=== PATIENT | female | born 1955 | race Caucasian/White ===

== ENCOUNTER 2017-09-15 12:44 | Inpatient (IN) | payer BC, MEDICAID, OTHER ==
[2017-09-15] VITALS (8 sets, daily range): BP systolic 108–167; BP diastolic 59–84
[~2017-09-15] VITALS: Ht 165.1 cm; Wt 102.1 kg
[~2017-09-15 12:44] MED LIST: BUPR-94 PO; LOSA25TA96 PO; TRAM1TAB36 PO
[2017-09-15 13:49] LABS: BASOPHILS % (AUTO) 0.3 % (0-1); EOSINOPHILS # (AUTO) 0.3 X10'3 (0-0.9); EOSINOPHILS % (AUTO) 3.4 % (0-6); LYMPHOCYTES # (AUTO) 1.6 X10'3 (1.1-4.8); LYMPHOCYTES % (AUTO) 15.7 % (21-51); MEAN CORPUSCULAR HEMOGLOBIN 19.3 PG (27.0-31.0); MEAN CORPUSCULAR VOLUME 62.4 FL (78-98); MEAN PLATELET VOLUME 6.9 FL (7.4-10.4); MONOCYTES # (AUTO) 0.6 X10'3 (0-0.9); MONOCYTES % (AUTO) 5.8 % (2-12); NEUTROPHILS # (AUTO) 7.7 X10'3 (1.8-7.7); NEUTROPHILS % (AUTO) 74.8 % (42-75); PLATELET COUNT 414 X10'3 (140-440); RED BLOOD COUNT 1.97 X10'6 (4.20-5.60); RED CELL DISTRIBUTION WIDTH 23.6 % (11.5-14.5); WHITE BLOOD COUNT 10.3 X10'3 (4.5-11.0)
[2017-09-15 13:59] LABS: HEMATOCRIT 12.3 % (35.0-45.0); HEMOGLOBIN 3.8 g/dl (12.0-16.0); PARTIAL THROMBOPLASTIN TIME 22 SECONDS (22-32); PROTHROMBIN TIME 10.3 SECONDS (9.0-12.0)
[2017-09-15 14:03] LABS: ALANINE AMINOTRANSFERASE 107 U/L (12-78); ALBUMIN 2.9 G/DL (3.4-5.0); ALKALINE PHOSPHATASE 140 IU/L (46-116); ANION GAP 6 (8-16); ASPARTATE AMINO TRANSFERASE 109 U/L (10-37); BILIRUBIN,TOTAL 0.2 MG/DL (0.1-1.0); BLOOD UREA NITROGEN 31 MG/DL (7-18); BUN/CREATININE RATIO 17.2 (6.6-38.0); CALCIUM 9.5 MG/DL (8.5-10.1); CHLORIDE 99 MMOL/L (99-107); GLUCOSE 114 MG/DL (70-104); SODIUM 143 MMOL/L (135-145); TOTAL CARBON DIOXIDE 38.4 MMOL/L (24-32); TOTAL PROTEIN 5.8 G/DL (6.4-8.2); eGFR 29 ML/MIN
[2017-09-15 14:06] LABS: POTASSIUM 2.4 MMOL/L (3.5-5.1)
[2017-09-15] MEDS ORDERED: potassium Cl 20 mEq SR tablet PO ONE (14:15)
[2017-09-15] MEDS ORDERED: magnesium 2GM in 50ml NS 50 ML IV ONE (14:15)
[2017-09-15] MEDS ORDERED: potassium 10mEq/100ml NS w/LIDOcaine (10mg/bag) IV ONE (14:15)
[2017-09-15 14:45] LABS: PLATELET ESTIMATE NORMAL
[2017-09-15] MEDS ORDERED: pantoprazole 40 MG vial IV ONE (14:45)
[2017-09-15 14:48] LABS: ANISOCYTOSIS 3+; HYPOCHROMASIA 1+; POIKILOCYTOSIS 1+; POLYCHROMASIA 1+
[2017-09-15 14:49] LABS: ELLIPTOCYTES 1+; MICROCYTOSIS 2+; TEAR DROP CELLS FEW
[2017-09-15] MEDS ORDERED: potassium Cl 20 mEq SR tablet PO PRN (16:00)
[2017-09-15] MEDS ORDERED: magnesium hydroxide 30ml (MOM) UD suspension PO PRN (16:00)
[2017-09-15] MEDS ORDERED: HYDROcodone/acetaminophen 10/325mg tab PO PRN (16:00)
[2017-09-15] MEDS ORDERED: ondansetron/PF 4mg/2ml inj IV PRN (16:00)
[2017-09-15] MEDS ORDERED: HYDROcodone/acetaminophen 5mg/325mg tablet PO PRN (16:00)
[2017-09-15] MEDS ORDERED: mag hydrox/Alum hydrox/simeth 30ml oral suspension PO PRN (16:00)
[2017-09-15] MEDS ORDERED: potassium Cl 40MEQ/NS 500ml 500 ML IV PRN (16:00)
[2017-09-15] MEDS ORDERED: acetaminophen 325mg tablet PO PRN ×2 (16:00)
[2017-09-15] MEDS ORDERED: magnesium 4gm in 100ml NS 100 ML IV PRN (16:00)
[2017-09-15] MEDS ORDERED: magnesium 2GM in 50ml NS 50 ML IV PRN (16:00)
[2017-09-15] MEDS ORDERED: magnesium Cl slow-release 64mg tablet PO PRN (16:00)
[2017-09-15] MEDS ORDERED: pantoprazole 40MG/NS 100ML BAG 100 ML IV SCH (16:20)
[2017-09-15] MEDS: pantoprazole 40MG/NS 100ML BAG 100 ML IV SCH ×2 (16:22→22:37)
[2017-09-15] MEDS ORDERED: LAMO100T89 PO (16:51)
[2017-09-15] MEDS ORDERED: ARIP5TAB4 PO (16:51)
[2017-09-15] MEDS ORDERED: MONT10TA24 PO (16:51)
[2017-09-15] MEDS ORDERED: ATEN50TA8 PO (16:51)
[2017-09-15] MEDS ORDERED: ADV50500 PO (16:54)
[2017-09-15] MEDS ORDERED: CHOL50004 PO (16:54)
[2017-09-15] MEDS ORDERED: CHLO25TA10 PO (16:54)
[2017-09-15] MEDS ORDERED: LOSA100T28 PO (16:54)
[2017-09-15 17:14] LABS: OCCULT BLOOD STOOL POSITIVE (Neg)
[2017-09-15] MEDS ORDERED: ARIP10TA17 PO (17:37)
[2017-09-15] MEDS ORDERED: ATEN25TA PO (17:38)
[2017-09-15 18:43] LABS: CLARITY,URINE CLEAR (Clear); COLOR,URINE YELLOW (Yellow); GLUCOSE, URINE NEGATIVE (Neg); KETONES,URINE NEGATIVE (Neg); LEUKOCYTE ESTERASE ,URINE NEGATIVE (Neg); NITRITES, URINE NEGATIVE (Neg); OCCULT BLOOD,URINE NEGATIVE (Neg); PROTEIN,URINE NEGATIVE (Neg); UROBILINOGEN,URINE 0.2 E.U/dL (0.2-1.0)
[2017-09-15 18:50] LABS: UA COLLECTION TYPE URINAL
[2017-09-16] VITALS (24 sets, daily range): BP systolic 112–234; BP diastolic 66–101
[2017-09-16] MEDS: pantoprazole 40MG/NS 100ML BAG 100 ML IV SCH ×6 (01:00→21:37)
[2017-09-16] MEDS: normal saline 1000ml 1,000 ML IV SCH ×4 (01:59→23:22)
[2017-09-16 06:04] LABS: HEMATOCRIT 22.7 % (35.0-45.0); HEMOGLOBIN 7.5 g/dl (12.0-16.0); MEAN CORPUSCULAR HEMOGLOBIN 25.2 PG (27.0-31.0); MEAN CORPUSCULAR HGB CONC 33.1 % (33.0-36.5); MEAN CORPUSCULAR VOLUME 76.1 FL (78-98); MEAN PLATELET VOLUME 7.2 FL (7.4-10.4); PLATELET COUNT 364 X10'3 (140-440); RED BLOOD COUNT 2.98 X10'6 (4.20-5.60); RED CELL DISTRIBUTION WIDTH 27.1 % (11.5-14.5); WHITE BLOOD COUNT 13.2 X10'3 (4.5-11.0)
[2017-09-16 06:13] LABS: ALBUMIN 2.7 G/DL (3.4-5.0); ANION GAP 6 (8-16); BLOOD UREA NITROGEN 34 MG/DL (7-18); BUN/CREATININE RATIO 21.3 (6.6-38.0); CALCIUM 9.2 MG/DL (8.5-10.1); CHLORIDE 103 MMOL/L (99-107); GLUCOSE 113 MG/DL (70-104); MAGNESIUM 1.9 MG/DL (1.5-2.4); SODIUM 144 MMOL/L (135-145); TOTAL CARBON DIOXIDE 34.6 MMOL/L (24-32); eGFR 33 ML/MIN
[2017-09-16] MEDS: K and/or MAG REPLACEMENT MC SCH (08:00)
[2017-09-16] MEDS: potassium Cl 40MEQ/NS 500ml 500 ML IV PRN ×2 (10:51→18:05)
[2017-09-16] MEDS ORDERED: normal saline 1000ml 1,000 ML IV SCH (15:42)
[2017-09-16] MEDS ORDERED: simethicone 40mg/0.6ml oral drops 30ml MC ONE (15:45)
[2017-09-16] MEDS ORDERED: fentaNYL/PF 50MCG/1 ML 2ML syringe IV PRN (15:45)
[2017-09-16] MEDS ORDERED: MIDAZolam 5mg/5ml vial IV PRN (15:45)
[2017-09-16] MEDS ORDERED: LIDOcaine Viscous 15ml cup PO ONE (15:45)
[2017-09-16] MEDS ORDERED: fentaNYL/PF 50MCG/1 ML 2ML syringe ONE (16:14)
[2017-09-16] MEDS ORDERED: LIDOcaine Viscous 15ml cup ONE (16:15)
[2017-09-16] MEDS ORDERED: MIDAZolam 1mg/ml 10ml vial ONE (16:15)
[2017-09-16] MEDS ORDERED: furosemide 40mg/4ml inj IV ONE (16:40)
[2017-09-17] VITALS (15 sets, daily range): BP systolic 137–162; BP diastolic 50–90
[2017-09-17] MEDS: potassium Cl 20 mEq SR tablet PO PRN ×2 (00:48→08:49)
[2017-09-17] MEDS: pantoprazole 40MG/NS 100ML BAG 100 ML IV SCH ×5 (01:00→20:53)
[2017-09-17 05:11] LABS: MEAN CORPUSCULAR HEMOGLOBIN 24.8 PG (27.0-31.0); MEAN CORPUSCULAR HGB CONC 32.7 % (33.0-36.5); MEAN CORPUSCULAR VOLUME 75.9 FL (78-98); MEAN PLATELET VOLUME 7.2 FL (7.4-10.4); PLATELET COUNT 344 X10'3 (140-440); RED BLOOD COUNT 2.66 X10'6 (4.20-5.60); RED CELL DISTRIBUTION WIDTH 27.9 % (11.5-14.5); WHITE BLOOD COUNT 14.7 X10'3 (4.5-11.0)
[2017-09-17 05:30] LABS: HEMATOCRIT 20.2 % (35.0-45.0); HEMOGLOBIN 6.6 g/dl (12.0-16.0)
[2017-09-17 05:49] LABS: ALBUMIN 2.4 G/DL (3.4-5.0); ANION GAP 7 (8-16); BLOOD UREA NITROGEN 24 MG/DL (7-18); CALCIUM 8.4 MG/DL (8.5-10.1); CHLORIDE 106 MMOL/L (99-107); GLUCOSE 106 MG/DL (70-104); MAGNESIUM 1.5 MG/DL (1.5-2.4); SODIUM 145 MMOL/L (135-145); TOTAL CARBON DIOXIDE 31.9 MMOL/L (24-32); eGFR 46 ML/MIN
[2017-09-17 05:53] LABS: POTASSIUM 2.8 MMOL/L (3.5-5.1)
[2017-09-17] MEDS: normal saline 1000ml 1,000 ML IV SCH ×2 (07:59→08:51)
[2017-09-17] MEDS: K and/or MAG REPLACEMENT MC SCH (08:00)
[2017-09-17] MEDS ORDERED: furosemide 20 MG/2 ML vial IV ONE ×2 (08:35→15:00)
[2017-09-17 13:11] LABS: HBSAG SCREEN Negative (Negative); HEP A AB, IGM Negative (Negative); HEP B CORE AB, IGM Negative (Negative); HEPATITIS C ANTIBODY <0.1 s/co ratio (0.0-0.9)
[2017-09-17] MEDS ORDERED: potassium Cl oral solution 20 MEQ/15 ML PO PRN ×2 (13:34→13:35)
[2017-09-17 18:13] LABS: HEMATOCRIT 25.6 % (35.0-45.0); HEMOGLOBIN 8.4 g/dl (12.0-16.0); MEAN CORPUSCULAR HEMOGLOBIN 26.1 PG (27.0-31.0); MEAN CORPUSCULAR HGB CONC 32.9 % (33.0-36.5); MEAN CORPUSCULAR VOLUME 79.3 FL (78-98); MEAN PLATELET VOLUME 6.9 FL (7.4-10.4); PLATELET COUNT 347 X10'3 (140-440); RED BLOOD COUNT 3.23 X10'6 (4.20-5.60); RED CELL DISTRIBUTION WIDTH 23.9 % (11.5-14.5); WHITE BLOOD COUNT 13.3 X10'3 (4.5-11.0)
[2017-09-17] MEDS: LIDOcaine 1% 30ml vial 5 ML in potassium Cl 40MEQ/NS 500ml 500 ML IV PRN (20:34)
[2017-09-17 22:15] LABS: HEMATOCRIT 25.1 % (35.0-45.0); HEMOGLOBIN 8.3 g/dl (12.0-16.0); MEAN CORPUSCULAR HGB CONC 33.1 % (33.0-36.5); MEAN CORPUSCULAR VOLUME 78.6 FL (78-98); MEAN PLATELET VOLUME 7.1 FL (7.4-10.4); PLATELET COUNT 326 X10'3 (140-440); RED BLOOD COUNT 3.19 X10'6 (4.20-5.60); RED CELL DISTRIBUTION WIDTH 23.6 % (11.5-14.5); WHITE BLOOD COUNT 12.6 X10'3 (4.5-11.0)
[2017-09-17] MEDS ORDERED: LORazepam 2 mg/ml vial IV PRN ×2 (23:35)
[2017-09-18] VITALS (14 sets, daily range): BP systolic 143–181; BP diastolic 76–102
[2017-09-18] MEDS: morphine 2 MG/ML inj. syringe IV PRN ×3 (00:42→19:56)
[2017-09-18] MEDS: LIDOcaine 1% 30ml vial 5 ML in potassium Cl 40MEQ/NS 500ml 500 ML IV PRN (00:53)
[2017-09-18] MEDS: pantoprazole 40MG/NS 100ML BAG 100 ML IV SCH ×5 (02:06→22:41)
[2017-09-18 02:53] LABS: HEMATOCRIT 23.8 % (35.0-45.0); MEAN CORPUSCULAR HEMOGLOBIN 26.4 PG (27.0-31.0); MEAN CORPUSCULAR HGB CONC 33.7 % (33.0-36.5); MEAN CORPUSCULAR VOLUME 78.4 FL (78-98); MEAN PLATELET VOLUME 6.8 FL (7.4-10.4); PLATELET COUNT 331 X10'3 (140-440); RED BLOOD COUNT 3.04 X10'6 (4.20-5.60); RED CELL DISTRIBUTION WIDTH 24.3 % (11.5-14.5)
[2017-09-18 03:01] LABS: ALBUMIN 2.2 G/DL (3.4-5.0); ANION GAP 5 (8-16); BLOOD UREA NITROGEN 19 MG/DL (7-18); BUN/CREATININE RATIO 17.3 (6.6-38.0); CALCIUM 7.9 MG/DL (8.5-10.1); CHLORIDE 111 MMOL/L (99-107); GLUCOSE 102 MG/DL (70-104); MAGNESIUM 1.2 MG/DL (1.5-2.4); POTASSIUM 3.6 MMOL/L (3.5-5.1); SODIUM 146 MMOL/L (135-145); eGFR 50 ML/MIN
[2017-09-18 07:13] LABS: HEMATOCRIT 24.2 % (35.0-45.0); HEMOGLOBIN 8.2 g/dl (12.0-16.0); MEAN CORPUSCULAR HEMOGLOBIN 26.3 PG (27.0-31.0); MEAN CORPUSCULAR HGB CONC 33.9 % (33.0-36.5); MEAN CORPUSCULAR VOLUME 77.5 FL (78-98); MEAN PLATELET VOLUME 6.4 FL (7.4-10.4); PLATELET COUNT 354 X10'3 (140-440); RED BLOOD COUNT 3.12 X10'6 (4.20-5.60); RED CELL DISTRIBUTION WIDTH 23.9 % (11.5-14.5); WHITE BLOOD COUNT 10.9 X10'3 (4.5-11.0)
[2017-09-18] MEDS: K and/or MAG REPLACEMENT MC SCH (07:38)
[2017-09-18] MEDS ORDERED: simethicone 40mg/0.6ml oral drops 30ml MC ONE (09:15)
[2017-09-18] MEDS ORDERED: normal saline 1000ml 1,000 ML IV SCH (09:15)
[2017-09-18] MEDS ORDERED: MIDAZolam 5mg/5ml vial IV PRN (09:15)
[2017-09-18] MEDS ORDERED: fentaNYL/PF 50MCG/1 ML 2ML syringe IV PRN (09:15)
[2017-09-18] MEDS ORDERED: LIDOcaine Viscous 15ml cup PO ONE (09:15)
[2017-09-18] MEDS ORDERED: LIDOcaine Viscous 15ml cup ONE (10:04)
[2017-09-18] MEDS ORDERED: MIDAZolam 1mg/ml 10ml vial ONE (10:04)
[2017-09-18] MEDS ORDERED: fentaNYL/PF 50MCG/1 ML 2ML syringe ONE (10:04)
[2017-09-18] MEDS: normal saline 1000ml 1,000 ML IV SCH (10:25)
[2017-09-18] MEDS ORDERED: cloNIDine 0.1 mg tablet PO PRN (15:50)
[2017-09-18] MEDS ORDERED: potassium Cl oral solution 20 MEQ/15 ML PO PRN (16:50)
[2017-09-18] MEDS ORDERED: potassium Cl 40MEQ/NS 500ml 500 ML IV PRN ×2 (16:50)
[2017-09-18] MEDS ORDERED: magnesium 4gm in 100ml NS 100 ML IV PRN (16:50)
[2017-09-18] MEDS ORDERED: magnesium 2GM in 50ml NS 50 ML IV PRN (16:50)
[2017-09-18] MEDS ORDERED: magnesium Cl slow-release 64mg tablet PO PRN (16:50)
[2017-09-18 17:55] LABS: HEMATOCRIT 24.7 % (35.0-45.0); HEMOGLOBIN 8.2 g/dl (12.0-16.0); MEAN CORPUSCULAR HEMOGLOBIN 26.1 PG (27.0-31.0); MEAN CORPUSCULAR VOLUME 79.1 FL (78-98); PLATELET COUNT 371 X10'3 (140-440); RED BLOOD COUNT 3.12 X10'6 (4.20-5.60); WHITE BLOOD COUNT 10.1 X10'3 (4.5-11.0)
[2017-09-18] MEDS: carVEDilol 3.125mg tablet PO SCH (19:54)
[2017-09-19] VITALS (50 sets, daily range): BP systolic 114–205; BP diastolic 57–112
[2017-09-19] MEDS: morphine 2 MG/ML inj. syringe IV PRN ×3 (00:23→20:12)
[2017-09-19] MEDS: pantoprazole 40MG/NS 100ML BAG 100 ML IV SCH ×5 (01:00→21:53)
[2017-09-19 04:40] LABS: MEAN CORPUSCULAR HGB CONC 32.8 % (33.0-36.5); MEAN CORPUSCULAR VOLUME 79.2 FL (78-98); MEAN PLATELET VOLUME 6.9 FL (7.4-10.4); PLATELET COUNT 379 X10'3 (140-440); RED BLOOD COUNT 2.65 X10'6 (4.20-5.60); RED CELL DISTRIBUTION WIDTH 24.8 % (11.5-14.5); WHITE BLOOD COUNT 11.8 X10'3 (4.5-11.0)
[2017-09-19 04:43] LABS: HEMOGLOBIN 6.9 g/dl (12.0-16.0)
[2017-09-19 05:22] LABS: ALBUMIN 2.2 G/DL (3.4-5.0); ANION GAP 7 (8-16); BLOOD UREA NITROGEN 14 MG/DL (7-18); CALCIUM 7.5 MG/DL (8.5-10.1); CHLORIDE 109 MMOL/L (99-107); GLUCOSE 130 MG/DL (70-104); MAGNESIUM 2.2 MG/DL (1.5-2.4); POTASSIUM 3.4 MMOL/L (3.5-5.1); SODIUM 143 MMOL/L (135-145); TOTAL CARBON DIOXIDE 27.1 MMOL/L (24-32); eGFR 56 ML/MIN
[2017-09-19] MEDS: K and/or MAG REPLACEMENT MC SCH (06:46)
[2017-09-19] MEDS: carVEDilol 3.125mg tablet PO SCH ×2 (08:00→22:46)
[2017-09-19] MEDS ORDERED: MIDAZolam 1mg/ml 10ml vial ONE (08:38)
[2017-09-19] MEDS ORDERED: LIDOcaine Viscous 15ml cup ONE (08:38)
[2017-09-19] MEDS ORDERED: fentaNYL/PF 50MCG/1 ML 2ML syringe ONE ×4 (08:38→15:44)
[2017-09-19] MEDS ORDERED: normal saline 1000ml 1,000 ML IV SCH (14:07)
[2017-09-19] MEDS ORDERED: LIDOcaine 1%/PF (10mg/ml) 5ml vial SQ ONE (14:10)
[2017-09-19] MEDS ORDERED: fentaNYL/PF 50MCG/1 ML 2ML syringe IV PRN (14:10)
[2017-09-19] MEDS ORDERED: midazolam 2 mg/2 ml injection IV PRN (14:10)
[2017-09-19] MEDS ORDERED: iohexol 300mg/ml 100ml inj. ONE (14:24)
[2017-09-19] MEDS ORDERED: midazolam 2 mg/2 ml injection ONE ×2 (14:56→15:13)
[2017-09-19 18:48] LABS: MEAN CORPUSCULAR HEMOGLOBIN 27.7 PG (27.0-31.0); MEAN CORPUSCULAR HGB CONC 33.2 % (33.0-36.5); MEAN CORPUSCULAR VOLUME 83.4 FL (78-98); MEAN PLATELET VOLUME 6.7 FL (7.4-10.4); PLATELET COUNT 338 X10'3 (140-440); RED BLOOD COUNT 2.22 X10'6 (4.20-5.60); RED CELL DISTRIBUTION WIDTH 21.3 % (11.5-14.5); WHITE BLOOD COUNT 11.1 X10'3 (4.5-11.0)
[2017-09-19 18:56] LABS: HEMATOCRIT 18.5 % (35.0-45.0); HEMOGLOBIN 6.1 g/dl (12.0-16.0)
[2017-09-19] MEDS: normal saline 1000ml 1,000 ML IV SCH (23:33)
[2017-09-20] VITALS (34 sets, daily range): BP systolic 79–220; BP diastolic 50–125
[2017-09-20] MEDS: morphine 2 MG/ML inj. syringe IV PRN ×4 (00:15→11:22)
[2017-09-20] MEDS: pantoprazole 40MG/NS 100ML BAG 100 ML IV SCH ×5 (01:12→18:39)
[2017-09-20 02:09] LABS: HEMOGLOBIN 7.1 g/dl (12.0-16.0); MEAN CORPUSCULAR HEMOGLOBIN 27.8 PG (27.0-31.0); MEAN CORPUSCULAR HGB CONC 32.8 % (33.0-36.5); MEAN CORPUSCULAR VOLUME 84.7 FL (78-98); MEAN PLATELET VOLUME 7.1 FL (7.4-10.4); PLATELET COUNT 262 X10'3 (140-440); RED BLOOD COUNT 2.56 X10'6 (4.20-5.60); RED CELL DISTRIBUTION WIDTH 16.7 % (11.5-14.5)
[2017-09-20 02:13] LABS: HEMATOCRIT 21.7 % (35.0-45.0)
[2017-09-20 06:16] LABS: MEAN CORPUSCULAR HEMOGLOBIN 28.5 PG (27.0-31.0); MEAN CORPUSCULAR HGB CONC 34.4 % (33.0-36.5); MEAN CORPUSCULAR VOLUME 82.8 FL (78-98); MEAN PLATELET VOLUME 6.9 FL (7.4-10.4); PLATELET COUNT 255 X10'3 (140-440); RED BLOOD COUNT 2.42 X10'6 (4.20-5.60); RED CELL DISTRIBUTION WIDTH 17.6 % (11.5-14.5); WHITE BLOOD COUNT 10.7 X10'3 (4.5-11.0)
[2017-09-20 06:32] LABS: ALBUMIN 1.6 G/DL (3.4-5.0); ANION GAP 5 (8-16); BLOOD UREA NITROGEN 22 MG/DL (7-18); BUN/CREATININE RATIO 24.4 (6.6-38.0); CHLORIDE 116 MMOL/L (99-107); GLUCOSE 124 MG/DL (70-104); MAGNESIUM 1.5 MG/DL (1.5-2.4); POTASSIUM 3.5 MMOL/L (3.5-5.1); SODIUM 146 MMOL/L (135-145); TOTAL CARBON DIOXIDE 25.1 MMOL/L (24-32); eGFR 64 ML/MIN
[2017-09-20 06:34] LABS: HEMOGLOBIN 6.9 g/dl (12.0-16.0)
[2017-09-20] MEDS: K and/or MAG REPLACEMENT MC SCH (08:00)
[2017-09-20] MEDS: carVEDilol 3.125mg tablet PO SCH ×2 (08:15→20:00)
[2017-09-20 09:28] LABS: ALANINE AMINOTRANSFERASE 17 U/L (12-78); ALBUMIN/GLOBULIN RATIO 0.8 (1.1-1.5); ALKALINE PHOSPHATASE 53 IU/L (46-116); ASPARTATE AMINO TRANSFERASE 12 U/L (10-37); BILIRUBIN,TOTAL 0.4 MG/DL (0.1-1.0); TOTAL PROTEIN 3.7 G/DL (6.4-8.2)
[2017-09-20 10:55] LABS: HEMATOCRIT 24.7 % (35.0-45.0); HEMOGLOBIN 8.6 g/dl (12.0-16.0); MEAN CORPUSCULAR HEMOGLOBIN 30.1 PG (27.0-31.0); MEAN CORPUSCULAR HGB CONC 34.9 % (33.0-36.5); MEAN CORPUSCULAR VOLUME 86.3 FL (78-98); MEAN PLATELET VOLUME 7.1 FL (7.4-10.4); PLATELET COUNT 232 X10'3 (140-440); RED BLOOD COUNT 2.86 X10'6 (4.20-5.60); RED CELL DISTRIBUTION WIDTH 17.1 % (11.5-14.5); WHITE BLOOD COUNT 11.1 X10'3 (4.5-11.0)
[2017-09-20 11:06] LABS: INR 1.1 INR; PARTIAL THROMBOPLASTIN TIME 25 SECONDS (22-32); PROTHROMBIN TIME 11.3 SECONDS (9.0-12.0)
[2017-09-20] MEDS ORDERED: sevoflurane 250ml liquid IH ONE (12:00)
[2017-09-20 12:51] LABS: ISTAT CREATININE 0.9 mg/dL (0.6-1.1); ISTAT IONIZED CALCIUM 1.11 mmol/L (1.03-1.32); ISTAT K 3.6 mmol/L (3.5-5.1); POC BUN/CREATININE RATIO 18.9 (6.6-38.0)
[2017-09-20 13:13] LABS: ISTAT HGB 5.1 g/dl (12.0-16.0)
[2017-09-20 14:25] LABS: ABG BASE EXCESS -9.2 mmol/L (-2.0-3.0); ABG HCO3 18.1 mmol/L (22.0-26.0); ABG OXYGEN SATURATION 96.7 % (95-98); ABG PCO2 (T) 44.7 mmHg (32.0-45.0); ABG PH (T) 7.226 (7.350-7.450); ABG PO2 (T) 95.3 mmHg (83-108); ALLEN'S TEST Positive; FCOHb 0.6 % (0.5-1.5); FO2Hb 96.1 % (94-100); MINUTE VOLUME 7 L/min; PATIENT TEMPERATURE 37.1; PEEP 5 cm H2O; RESPIRATORY RATE 12 b/min; RESPIRATORY RATE (OBSERVED) 12 b/min; TIDAL VOLUME 550 mL
[2017-09-20] MEDS ORDERED: furosemide 40mg/4ml inj IV ONE (14:40)
[2017-09-20 14:48] LABS: BASOPHILS % (AUTO) 0.1 % (0-1); EOSINOPHILS % (AUTO) 6.3 % (0-6); HEMATOCRIT 37.2 % (35.0-45.0); HEMOGLOBIN 12.8 g/dl (12.0-16.0); LYMPHOCYTES # (AUTO) 2.5 X10'3 (1.1-4.8); LYMPHOCYTES % (AUTO) 15.1 % (21-51); MEAN CORPUSCULAR HEMOGLOBIN 30.7 PG (27.0-31.0); MEAN CORPUSCULAR HGB CONC 34.5 % (33.0-36.5); MEAN CORPUSCULAR VOLUME 89.1 FL (78-98); MEAN PLATELET VOLUME 6.9 FL (7.4-10.4); MONOCYTES # (AUTO) 0.4 X10'3 (0-0.9); MONOCYTES % (AUTO) 2.5 % (2-12); NEUTROPHILS # (AUTO) 12.4 X10'3 (1.8-7.7); PLATELET COUNT 224 X10'3 (140-440); RED BLOOD COUNT 4.18 X10'6 (4.20-5.60); RED CELL DISTRIBUTION WIDTH 15.7 % (11.5-14.5); WHITE BLOOD COUNT 16.3 X10'3 (4.5-11.0)
[2017-09-20 15:04] LABS: ALANINE AMINOTRANSFERASE 43 U/L (12-78); ALBUMIN 1.7 G/DL (3.4-5.0); ALBUMIN/GLOBULIN RATIO 0.7 (1.1-1.5); ALKALINE PHOSPHATASE 62 IU/L (46-116); ANION GAP 8 (8-16); ASPARTATE AMINO TRANSFERASE 50 U/L (10-37); BILIRUBIN,TOTAL 0.6 MG/DL (0.1-1.0); BLOOD UREA NITROGEN 22 MG/DL (7-18); BUN/CREATININE RATIO 18.3 (6.6-38.0); CALCIUM 6.7 MG/DL (8.5-10.1); CHLORIDE 117 MMOL/L (99-107); GLUCOSE 165 MG/DL (70-104); MAGNESIUM 1.4 MG/DL (1.5-2.4); PHOSPHORUS 3.4 MG/DL (2.3-4.5); POTASSIUM 3.8 MMOL/L (3.5-5.1); SODIUM 147 MMOL/L (135-145); TOTAL CARBON DIOXIDE 21.9 MMOL/L (24-32); eGFR 46 ML/MIN
[2017-09-20] MEDS ORDERED: NORepinephrine 8mg/ 250ml NS 250 ML IV SCH (15:10)
[2017-09-20] MEDS ORDERED: vancomycin/NS 1 GM ADD-VANTAGE 250 ML IV ONE (15:10)
[2017-09-20 15:16] LABS: OXYGEN SATURATION (MIXED VEN) 79.1 % (60-80); PO2 MIXED VENOUS (TEMP COR) 44.5 mmHg (35-46)
[2017-09-20] MEDS ORDERED: morphine 4 MG/ML inj SYRINge IV PRN ×2 (15:16→16:11)
[2017-09-20] MEDS: cefepime 1GM/NS ADD-VANTAGE 100 ML IV SCH (15:26)
[2017-09-20] MEDS: DOBUTamine-DoBUTrex 500mg/D5W 250 ML IV SCH (15:38)
[2017-09-20] MEDS ORDERED: morphine 5 MG/ML injection IV PRN (16:01)
[2017-09-20] MEDS: FENTANYL-0.9 % NACL/PF 100 ML IV PRN ×2 (16:24→18:39)
[2017-09-20] MEDS: midazolam 100mg in NS 100ml 100 ML IV PRN (16:25)
[2017-09-20 18:02] LABS: HEMATOCRIT 34.5 % (35.0-45.0); HEMOGLOBIN 11.9 g/dl (12.0-16.0); MEAN CORPUSCULAR HEMOGLOBIN 30.3 PG (27.0-31.0); MEAN CORPUSCULAR HGB CONC 34.4 % (33.0-36.5); MEAN CORPUSCULAR VOLUME 88.1 FL (78-98); MEAN PLATELET VOLUME 6.8 FL (7.4-10.4); PLATELET COUNT 213 X10'3 (140-440); RED BLOOD COUNT 3.91 X10'6 (4.20-5.60); RED CELL DISTRIBUTION WIDTH 15.3 % (11.5-14.5); WHITE BLOOD COUNT 21.9 X10'3 (4.5-11.0)
[2017-09-20] MEDS ORDERED: vancomycin/NS 1 GM ADD-VANTAGE 250 ML IV SCH (20:00)
[2017-09-21] VITALS (22 sets, daily range): BP systolic 87–148; BP diastolic 45–80
[2017-09-21] MEDS: pantoprazole 40MG/NS 100ML BAG 100 ML IV SCH ×6 (01:07→22:26)
[2017-09-21] MEDS: cefepime 1GM/NS ADD-VANTAGE 100 ML IV SCH ×4 (01:07→23:50)
[2017-09-21] MEDS: midazolam 100mg in NS 100ml 100 ML IV PRN ×2 (03:28→22:27)
[2017-09-21 03:56] LABS: ABG BASE EXCESS -3.6 mmol/L (-2.0-3.0); ABG OXYGEN SATURATION 91.1 % (95-98); ABG PCO2 (T) 32.6 mmHg (32.0-45.0); ABG PH (T) 7.409 (7.350-7.450); ABG PO2 (T) 59.5 mmHg (83-108); ALLEN'S TEST Positive; FCOHb 0.3 % (0.5-1.5); FMetHb 0.1 % (0.3-1.12); FO2Hb 90.7 % (94-100); MINUTE VOLUME 8 L/min; PATIENT TEMPERATURE 37.8; PEEP 5 cm H2O; RESPIRATORY RATE 14 b/min; TIDAL VOLUME 550 mL; TOTAL HEMOGLOBIN 10.9 G/dl (12.0-16.0)
[2017-09-21] MEDS: vancomycin inj 1,250 MG in normal saline 250ml IV soln 250 ML IV SCH ×2 (03:57→14:36)
[2017-09-21 04:03] LABS: BASOPHILS % (AUTO) 0 % (0-1); EOSINOPHILS # (AUTO) 0.7 X10'3 (0-0.9); EOSINOPHILS % (AUTO) 3.2 % (0-6); HEMATOCRIT 30.5 % (35.0-45.0); HEMOGLOBIN 10.5 g/dl (12.0-16.0); LYMPHOCYTES # (AUTO) 1.4 X10'3 (1.1-4.8); LYMPHOCYTES % (AUTO) 6.8 % (21-51); MEAN CORPUSCULAR HEMOGLOBIN 30.3 PG (27.0-31.0); MEAN CORPUSCULAR HGB CONC 34.4 % (33.0-36.5); MEAN CORPUSCULAR VOLUME 88.3 FL (78-98); MEAN PLATELET VOLUME 7.1 FL (7.4-10.4); MONOCYTES # (AUTO) 0.7 X10'3 (0-0.9); MONOCYTES % (AUTO) 3.1 % (2-12); NEUTROPHILS # (AUTO) 18.5 X10'3 (1.8-7.7); NEUTROPHILS % (AUTO) 86.9 % (42-75); PLATELET COUNT 207 X10'3 (140-440); RED BLOOD COUNT 3.46 X10'6 (4.20-5.60); RED CELL DISTRIBUTION WIDTH 15.9 % (11.5-14.5); WHITE BLOOD COUNT 21.3 X10'3 (4.5-11.0)
[2017-09-21 04:14] LABS: INR 1.1 INR; PARTIAL THROMBOPLASTIN TIME 26 SECONDS (22-32); PROTHROMBIN TIME 11.2 SECONDS (9.0-12.0)
[2017-09-21 04:31] LABS: ALANINE AMINOTRANSFERASE 32 U/L (12-78); ALBUMIN 1.5 G/DL (3.4-5.0); ALBUMIN/GLOBULIN RATIO 0.7 (1.1-1.5); ALKALINE PHOSPHATASE 56 IU/L (46-116); ANION GAP 8 (8-16); ASPARTATE AMINO TRANSFERASE 30 U/L (10-37); BILIRUBIN,TOTAL 0.4 MG/DL (0.1-1.0); BLOOD UREA NITROGEN 22 MG/DL (7-18); BUN/CREATININE RATIO 18.3 (6.6-38.0); CALCIUM 6.9 MG/DL (8.5-10.1); CHLORIDE 118 MMOL/L (99-107); GLUCOSE 137 MG/DL (70-104); MAGNESIUM 1.4 MG/DL (1.5-2.4); PHOSPHORUS 3.1 MG/DL (2.3-4.5); POTASSIUM 3.4 MMOL/L (3.5-5.1); SODIUM 148 MMOL/L (135-145); TOTAL CARBON DIOXIDE 22.5 MMOL/L (24-32); TOTAL PROTEIN 3.8 G/DL (6.4-8.2); eGFR 46 ML/MIN
[2017-09-21] MEDS: FENTANYL-0.9 % NACL/PF 100 ML IV PRN ×3 (04:49→23:50)
[2017-09-21] MEDS: K and/or MAG REPLACEMENT MC SCH (06:43)
[2017-09-21] MEDS: potassium Cl 40MEQ/250ML bag 250 ML IV PRN ×2 (06:59→21:12)
[2017-09-21] MEDS: carVEDilol 3.125mg tablet PO SCH ×2 (08:00→20:00)
[2017-09-21] MEDS: furosemide 20 MG/2 ML vial IV SCH ×4 (08:50→19:45)
[2017-09-21] MEDS: ipratropium/albuterol 3ml nebule NEB SCH ×4 (11:32→23:34)
[2017-09-21] MEDS: mineral oil/petrolatum ophthal oint EACHEYE SCH ×2 (14:36→19:45)
[2017-09-21] MEDS: DOBUTamine-DoBUTrex 500mg/D5W 250 ML IV SCH (15:59)
[2017-09-21 16:58] LABS: ALBUMIN 1.5 G/DL (3.4-5.0); ANION GAP 10 (8-16); BLOOD UREA NITROGEN 20 MG/DL (7-18); BUN/CREATININE RATIO 18.2 (6.6-38.0); CALCIUM 7.6 MG/DL (8.5-10.1); CHLORIDE 119 MMOL/L (99-107); GLUCOSE 107 MG/DL (70-104); MAGNESIUM 1.6 MG/DL (1.5-2.4); POTASSIUM 3.4 MMOL/L (3.5-5.1); SODIUM 152 MMOL/L (135-145); TOTAL CARBON DIOXIDE 23.5 MMOL/L (24-32); eGFR 50 ML/MIN
[2017-09-21] MEDS: dextrose 5%-water 1,000 ML IV SCH (17:22)
[2017-09-22] VITALS (23 sets, daily range): BP systolic 99–150; BP diastolic 44–67
[2017-09-22] MEDS: vancomycin inj 1,250 MG in normal saline 250ml IV soln 250 ML IV SCH ×2 (02:55→15:16)
[2017-09-22] MEDS: mineral oil/petrolatum ophthal oint EACHEYE SCH ×4 (02:55→19:51)
[2017-09-22 03:01] LABS: ABG BASE EXCESS -2.2 mmol/L (-2.0-3.0); ABG HCO3 19.9 mmol/L (22.0-26.0); ABG OXYGEN SATURATION 94.9 % (95-98); ABG PCO2 (T) 26.5 mmHg (32.0-45.0); ABG PH (T) 7.496 (7.350-7.450); ABG PO2 (T) 76.6 mmHg (83-108); ALLEN'S TEST Positive; FCOHb 0.2 % (0.5-1.5); FO2Hb 94.7 % (94-100); MINUTE VOLUME 9 L/min; PATIENT TEMPERATURE 37.5; PEEP 5 cm H2O; RESPIRATORY RATE 14 b/min; RESPIRATORY RATE (OBSERVED) 14 b/min; TIDAL VOLUME 550 mL; TOTAL HEMOGLOBIN 9.9 G/dl (12.0-16.0)
[2017-09-22] MEDS: ipratropium/albuterol 3ml nebule NEB SCH ×6 (03:06→22:27)
[2017-09-22] MEDS: pantoprazole 40MG/NS 100ML BAG 100 ML IV SCH ×2 (03:18→08:39)
[2017-09-22 03:46] LABS: ALANINE AMINOTRANSFERASE 18 U/L (12-78); ALBUMIN 1.4 G/DL (3.4-5.0); ALBUMIN/GLOBULIN RATIO 0.5 (1.1-1.5); ALKALINE PHOSPHATASE 58 IU/L (46-116); ANION GAP 9 (8-16); ASPARTATE AMINO TRANSFERASE 20 U/L (10-37); BILIRUBIN,TOTAL 0.5 MG/DL (0.1-1.0); BLOOD UREA NITROGEN 23 MG/DL (7-18); BUN/CREATININE RATIO 19.2 (6.6-38.0); CALCIUM 7.4 MG/DL (8.5-10.1); CHLORIDE 118 MMOL/L (99-107); GLUCOSE 133 MG/DL (70-104); MAGNESIUM 1.5 MG/DL (1.5-2.4); POTASSIUM 3.3 MMOL/L (3.5-5.1); SODIUM 150 MMOL/L (135-145); TOTAL CARBON DIOXIDE 23.2 MMOL/L (24-32); TOTAL PROTEIN 4.2 G/DL (6.4-8.2); eGFR 46 ML/MIN
[2017-09-22 03:53] LABS: BASOPHILS % (AUTO) 0.3 % (0-1); EOSINOPHILS # (AUTO) 0.7 X10'3 (0-0.9); EOSINOPHILS % (AUTO) 4.6 % (0-6); HEMATOCRIT 27.4 % (35.0-45.0); HEMOGLOBIN 9.2 g/dl (12.0-16.0); LYMPHOCYTES # (AUTO) 1.6 X10'3 (1.1-4.8); MEAN CORPUSCULAR HEMOGLOBIN 30.1 PG (27.0-31.0); MEAN CORPUSCULAR HGB CONC 33.5 % (33.0-36.5); MEAN CORPUSCULAR VOLUME 90.1 FL (78-98); MEAN PLATELET VOLUME 7.5 FL (7.4-10.4); MONOCYTES # (AUTO) 0.6 X10'3 (0-0.9); MONOCYTES % (AUTO) 4.2 % (2-12); NEUTROPHILS # (AUTO) 11.8 X10'3 (1.8-7.7); NEUTROPHILS % (AUTO) 79.9 % (42-75); PLATELET COUNT 220 X10'3 (140-440); RED BLOOD COUNT 3.04 X10'6 (4.20-5.60); RED CELL DISTRIBUTION WIDTH 16.3 % (11.5-14.5); WHITE BLOOD COUNT 14.8 X10'3 (4.5-11.0)
[2017-09-22] MEDS: normal saline 1000ml 1,000 ML IV SCH (07:03)
[2017-09-22] MEDS: cefepime 1GM/NS ADD-VANTAGE 100 ML IV SCH ×2 (07:24→17:05)
[2017-09-22] MEDS: K and/or MAG REPLACEMENT MC SCH (07:25)
[2017-09-22] MEDS: carVEDilol 3.125mg tablet PO SCH ×2 (07:25→20:00)
[2017-09-22] MEDS: dextrose 5%-water 1,000 ML IV SCH ×2 (09:47→19:52)
[2017-09-22] MEDS: potassium Cl 40MEQ/250ML bag 250 ML IV PRN (09:48)
[2017-09-22] MEDS: FENTANYL-0.9 % NACL/PF 100 ML IV PRN ×2 (10:35→19:30)
[2017-09-22] MEDS ORDERED: midazolam 2 mg/2 ml injection IV ONE (14:20)
[2017-09-22] MEDS ORDERED: fentaNYL/PF 50MCG/1 ML 2ML syringe IV ONE (14:20)
[2017-09-22] MEDS ORDERED: VANCOMYCIN LEVEL IV NR (14:30)
[2017-09-22] MEDS: dexmedetomidine inj. 400 MCG in normal saline 100ml IV soln 100 ML IV PRN ×2 (15:26→19:51)
[2017-09-22] MEDS: pantoprazole 40 MG vial IV SCH (19:51)
[2017-09-23] VITALS (25 sets, daily range): BP systolic 97–198; BP diastolic 55–95
[2017-09-23] MEDS: cefepime 1GM/NS ADD-VANTAGE 100 ML IV SCH ×3 (00:53→15:34)
[2017-09-23] MEDS: ipratropium/albuterol 3ml nebule NEB SCH ×5 (02:25→19:47)
[2017-09-23] MEDS: mineral oil/petrolatum ophthal oint EACHEYE SCH ×2 (02:34→08:50)
[2017-09-23] MEDS: vancomycin inj 1,250 MG in normal saline 250ml IV soln 250 ML IV SCH ×2 (02:34→15:34)
[2017-09-23 02:36] LABS: BASOPHILS % (AUTO) 0.4 % (0-1); EOSINOPHILS % (AUTO) 9.2 % (0-6); HEMATOCRIT 26.6 % (35.0-45.0); HEMOGLOBIN 8.9 g/dl (12.0-16.0); LYMPHOCYTES # (AUTO) 1.3 X10'3 (1.1-4.8); LYMPHOCYTES % (AUTO) 12.2 % (21-51); MEAN CORPUSCULAR HEMOGLOBIN 30.4 PG (27.0-31.0); MEAN CORPUSCULAR HGB CONC 33.6 % (33.0-36.5); MEAN CORPUSCULAR VOLUME 90.4 FL (78-98); MONOCYTES # (AUTO) 0.4 X10'3 (0-0.9); MONOCYTES % (AUTO) 3.9 % (2-12); NEUTROPHILS # (AUTO) 8.1 X10'3 (1.8-7.7); NEUTROPHILS % (AUTO) 74.3 % (42-75); PLATELET COUNT 253 X10'3 (140-440); RED BLOOD COUNT 2.94 X10'6 (4.20-5.60); RED CELL DISTRIBUTION WIDTH 16.7 % (11.5-14.5); WHITE BLOOD COUNT 10.9 X10'3 (4.5-11.0)
[2017-09-23 02:56] LABS: ALANINE AMINOTRANSFERASE 17 U/L (12-78); ALBUMIN 1.3 G/DL (3.4-5.0); ALBUMIN/GLOBULIN RATIO 0.4 (1.1-1.5); ALKALINE PHOSPHATASE 60 IU/L (46-116); ANION GAP 8 (8-16); ASPARTATE AMINO TRANSFERASE 18 U/L (10-37); BILIRUBIN,TOTAL 0.4 MG/DL (0.1-1.0); BLOOD UREA NITROGEN 16 MG/DL (7-18); CALCIUM 7.9 MG/DL (8.5-10.1); CHLORIDE 118 MMOL/L (99-107); GLUCOSE 115 MG/DL (70-104); POTASSIUM 3.4 MMOL/L (3.5-5.1); SODIUM 149 MMOL/L (135-145); TOTAL CARBON DIOXIDE 23.1 MMOL/L (24-32); TOTAL PROTEIN 4.5 G/DL (6.4-8.2); eGFR 56 ML/MIN
[2017-09-23 03:16] LABS: ABG BASE EXCESS -3.6 mmol/L (-2.0-3.0); ABG HCO3 21.3 mmol/L (22.0-26.0); ABG OXYGEN SATURATION 95.9 % (95-98); ABG PCO2 (T) 37.3 mmHg (32.0-45.0); ABG PH (T) 7.373 (7.350-7.450); ABG PO2 (T) 84.5 mmHg (83-108); ALLEN'S TEST Positive; FCOHb 0.3 % (0.5-1.5); FMetHb 0.3 % (0.3-1.12); FO2Hb 95.3 % (94-100); MINUTE VOLUME 6 L/min; PATIENT TEMPERATURE 36.7; PEEP 5 cm H2O; RESPIRATORY RATE 0 b/min; RESPIRATORY RATE (OBSERVED) 13 b/min; TIDAL VOLUME 503 mL; TOTAL HEMOGLOBIN 9.7 G/dl (12.0-16.0)
[2017-09-23] MEDS: FENTANYL-0.9 % NACL/PF 100 ML IV PRN (05:47)
[2017-09-23] MEDS: K and/or MAG REPLACEMENT MC SCH (08:00)
[2017-09-23] MEDS: potassium Cl 40MEQ/250ML bag 250 ML IV PRN (08:50)
[2017-09-23] MEDS: pantoprazole 40 MG vial IV SCH ×2 (08:50→20:09)
[2017-09-23] MEDS: carVEDilol 3.125mg tablet PO SCH ×2 (08:50→20:10)
[2017-09-23] MEDS: dextrose 5%-water 1,000 ML IV SCH (08:51)
[2017-09-23 10:00] LABS: MAGNESIUM 1.4 MG/DL (1.5-2.4); PHOSPHORUS 3.3 MG/DL (2.3-4.5)
[2017-09-23] MEDS ORDERED: ipratropium/albuterol 3ml nebule NEB PRN (10:35)
[2017-09-23] MEDS ORDERED: naloxone 0.4 mg/ml inj IV PRN (10:35)
[2017-09-23] MEDS ORDERED: racepinephrine 11.25mg/0.5ml nebule NEB PRN (10:35)
[2017-09-23] MEDS ORDERED: CADD PCA waste documentation MC PRN (10:35)
[2017-09-23] MEDS ORDERED: HYDROmorphone/NS 1 mg/ml CADD 50 ML IV SCH (11:00)
[2017-09-23] MEDS: HYDROmorphone/NS 1 mg/ml CADD 50 ML IV SCH ×7 (11:49→23:00)
[2017-09-23 13:48] LABS: HEMOGLOBIN A1C 5.4 % (4.5-6.2)
[2017-09-23] MEDS: lactobacillus rhamnosus 10,000 MMU CELLS/CAPSULE PO SCH (18:02)
[2017-09-23] MEDS: lamoTRIgine 100mg tablet PO SCH (20:10)
[2017-09-23] MEDS: montelukast 10mg tablet PO SCH (20:10)
[2017-09-24] VITALS (25 sets, daily range): BP systolic 115–199; BP diastolic 45–103
[2017-09-24] MEDS: HYDROmorphone/NS 1 mg/ml CADD 50 ML IV SCH ×12 (01:00→23:00)
[2017-09-24] MEDS: dextrose 5%-water 1,000 ML IV SCH (01:59)
[2017-09-24] MEDS: cefepime 1GM/NS ADD-VANTAGE 100 ML IV SCH ×3 (01:59→16:34)
[2017-09-24 02:16] LABS: ABG BASE EXCESS -4.1 mmol/L (-2.0-3.0); ABG HCO3 20.6 mmol/L (22.0-26.0); ABG OXYGEN SATURATION 94.2 % (95-98); ABG PCO2 (T) 37.9 mmHg (32.0-45.0); ABG PH (T) 7.358 (7.350-7.450); ABG PO2 (T) 75.3 mmHg (83-108); ALLEN'S TEST Positive; FCOHb 0.3 % (0.5-1.5); FLOW 2 L/min; FMetHb 0.3 % (0.3-1.12); FO2Hb 93.6 % (94-100); PATIENT TEMPERATURE 37.9; RESPIRATORY RATE (OBSERVED) 24 b/min; TOTAL HEMOGLOBIN 10.7 G/dl (12.0-16.0)
[2017-09-24] MEDS: ipratropium/albuterol 3ml nebule NEB SCH ×4 (02:18→20:49)
[2017-09-24 03:19] LABS: BASOPHILS % (AUTO) 0.3 % (0-1); EOSINOPHILS # (AUTO) 0.8 X10'3 (0-0.9); EOSINOPHILS % (AUTO) 8.4 % (0-6); HEMATOCRIT 29.3 % (35.0-45.0); HEMOGLOBIN 9.8 g/dl (12.0-16.0); LYMPHOCYTES # (AUTO) 1.2 X10'3 (1.1-4.8); LYMPHOCYTES % (AUTO) 11.5 % (21-51); MEAN CORPUSCULAR HGB CONC 33.5 % (33.0-36.5); MEAN CORPUSCULAR VOLUME 89.6 FL (78-98); MEAN PLATELET VOLUME 7.2 FL (7.4-10.4); MONOCYTES # (AUTO) 0.5 X10'3 (0-0.9); MONOCYTES % (AUTO) 4.7 % (2-12); NEUTROPHILS # (AUTO) 7.6 X10'3 (1.8-7.7); NEUTROPHILS % (AUTO) 75.1 % (42-75); PLATELET COUNT 338 X10'3 (140-440); RED BLOOD COUNT 3.27 X10'6 (4.20-5.60); RED CELL DISTRIBUTION WIDTH 15.7 % (11.5-14.5); WHITE BLOOD COUNT 10.1 X10'3 (4.5-11.0)
[2017-09-24 03:38] LABS: ALANINE AMINOTRANSFERASE 18 U/L (12-78); ALBUMIN 1.5 G/DL (3.4-5.0); ALBUMIN/GLOBULIN RATIO 0.4 (1.1-1.5); ALKALINE PHOSPHATASE 91 IU/L (46-116); ANION GAP 11 (8-16); ASPARTATE AMINO TRANSFERASE 24 U/L (10-37); BILIRUBIN,TOTAL 0.4 MG/DL (0.1-1.0); BLOOD UREA NITROGEN 13 MG/DL (7-18); BUN/CREATININE RATIO 14.4 (6.6-38.0); CHLORIDE 114 MMOL/L (99-107); GLUCOSE 108 MG/DL (70-104); MAGNESIUM 1.4 MG/DL (1.5-2.4); PHOSPHORUS 3.8 MG/DL (2.3-4.5); POTASSIUM 3.1 MMOL/L (3.5-5.1); SODIUM 147 MMOL/L (135-145); TOTAL CARBON DIOXIDE 21.9 MMOL/L (24-32); TOTAL PROTEIN 4.9 G/DL (6.4-8.2); eGFR 64 ML/MIN
[2017-09-24] MEDS: vancomycin inj 1,250 MG in normal saline 250ml IV soln 250 ML IV SCH ×2 (03:43→14:52)
[2017-09-24] MEDS: normal saline 1000ml 1,000 ML IV SCH (07:03)
[2017-09-24] MEDS: K and/or MAG REPLACEMENT MC SCH (08:00)
[2017-09-24] MEDS ORDERED: cholecalciferol (vitamin D) 400 unit tablet PO SCH (08:00)
[2017-09-24] MEDS: pantoprazole 40 MG vial IV SCH ×2 (08:38→19:40)
[2017-09-24] MEDS ORDERED: labetalol 20mg/4ml (5mg/ml) syringe IV PRN (09:05)
[2017-09-24] MEDS ORDERED: fat emulsion IV 181.82 ML, MVI, adult No.4 with vit. K 4.55 ML, Trace element-5 inj. 0.... IV SCH ×4 (09:11)
[2017-09-24] MEDS ORDERED: Dextrose 10%-water IV solution 1,000 ML IV PRN (09:11)
[2017-09-24] MEDS ORDERED: magnesium 4gm in 100ml NS 100 ML IV PRN (09:35)
[2017-09-24] MEDS ORDERED: magnesium 2GM in 50ml NS 50 ML IV PRN (09:35)
[2017-09-24] MEDS: potassium Cl 40MEQ/250ML bag 250 ML IV PRN (10:05)
[2017-09-24] MEDS ORDERED: [UNRECOGNIZED DRUG - REMARK] IV SCH ×4 (11:00)
[2017-09-24] MEDS ORDERED: [UNRECOGNIZED DRUG - REMARK] IV SCH ×4 (11:00)
[2017-09-24] MEDS ORDERED: [UNRECOGNIZED DRUG - REMARK] IV SCH ×3 (11:00)
[2017-09-24] MEDS: losartan 50mg tablet PO SCH (13:46)
[2017-09-24] MEDS: lactobacillus rhamnosus 10,000 MMU CELLS/CAPSULE PO SCH (13:46)
[2017-09-24] MEDS: aripiprazole 5mg tablet PO SCH (13:46)
[2017-09-24] MEDS: vitamin D (cholecalciferol) 1,000 unit tablet PO SCH (13:47)
[2017-09-24] MEDS: lamoTRIgine 100mg tablet PO SCH (13:47)
[2017-09-24] MEDS: carVEDilol 3.125mg tablet PO SCH (13:47)
[2017-09-24] MEDS: chlorthalidone 25mg tablet PO SCH (13:48)
[2017-09-24] MEDS: SODIUM CHLORIDE 0.45% IV SCH (16:29)
[2017-09-24] MEDS: POTASSIUM CL IV SCH (16:29)
[2017-09-24] MEDS: MAGNESIUM IV SCH (16:29)
[2017-09-25] VITALS (23 sets, daily range): BP systolic 110–189; BP diastolic 54–96
[2017-09-25] MEDS: cefepime 1GM/NS ADD-VANTAGE 100 ML IV SCH ×2 (00:05→09:06)
[2017-09-25] MEDS: HYDROmorphone/NS 1 mg/ml CADD 50 ML IV SCH ×5 (01:00→09:00)
[2017-09-25] MEDS: ipratropium/albuterol 3ml nebule NEB SCH ×4 (02:30→20:48)
[2017-09-25 03:04] LABS: BASOPHILS % (AUTO) 0.3 % (0-1); EOSINOPHILS # (AUTO) 0.7 X10'3 (0-0.9); EOSINOPHILS % (AUTO) 9.3 % (0-6); HEMATOCRIT 27.6 % (35.0-45.0); HEMOGLOBIN 9.3 g/dl (12.0-16.0); LYMPHOCYTES # (AUTO) 0.9 X10'3 (1.1-4.8); LYMPHOCYTES % (AUTO) 11.8 % (21-51); MEAN CORPUSCULAR HEMOGLOBIN 30.1 PG (27.0-31.0); MEAN CORPUSCULAR HGB CONC 33.7 % (33.0-36.5); MEAN CORPUSCULAR VOLUME 89.2 FL (78-98); MEAN PLATELET VOLUME 6.5 FL (7.4-10.4); MONOCYTES # (AUTO) 0.5 X10'3 (0-0.9); MONOCYTES % (AUTO) 5.7 % (2-12); NEUTROPHILS # (AUTO) 5.8 X10'3 (1.8-7.7); NEUTROPHILS % (AUTO) 72.9 % (42-75); PLATELET COUNT 425 X10'3 (140-440); RED BLOOD COUNT 3.09 X10'6 (4.20-5.60); RED CELL DISTRIBUTION WIDTH 15.7 % (11.5-14.5)
[2017-09-25] MEDS: vancomycin inj 1,250 MG in normal saline 250ml IV soln 250 ML IV SCH (03:20)
[2017-09-25 03:21] LABS: ALANINE AMINOTRANSFERASE 24 U/L (12-78); ALBUMIN 1.6 G/DL (3.4-5.0); ALBUMIN/GLOBULIN RATIO 0.5 (1.1-1.5); ALKALINE PHOSPHATASE 98 IU/L (46-116); ANION GAP 10 (8-16); ASPARTATE AMINO TRANSFERASE 24 U/L (10-37); BILIRUBIN,TOTAL 0.6 MG/DL (0.1-1.0); BLOOD UREA NITROGEN 9 MG/DL (7-18); CHLORIDE 110 MMOL/L (99-107); GLUCOSE 92 MG/DL (70-104); MAGNESIUM 2.1 MG/DL (1.5-2.4); PHOSPHORUS 3.6 MG/DL (2.3-4.5); SODIUM 143 MMOL/L (135-145); TOTAL CARBON DIOXIDE 23.3 MMOL/L (24-32); TOTAL PROTEIN 4.9 G/DL (6.4-8.2); eGFR 64 ML/MIN
[2017-09-25] MEDS ORDERED: potassium Cl 40MEQ/250ML bag 500 ML IV ONE (03:42)
[2017-09-25] MEDS: potassium Cl 40MEQ/250ML bag 250 ML IV PRN ×2 (04:02→06:04)
[2017-09-25] MEDS: K and/or MAG REPLACEMENT MC SCH (07:16)
[2017-09-25] MEDS: aripiprazole 5mg tablet PO SCH (09:06)
[2017-09-25] MEDS: pantoprazole 40 MG vial IV SCH ×2 (09:07→19:40)
[2017-09-25] MEDS: POTASSIUM CL IV SCH (09:08)
[2017-09-25] MEDS: SODIUM CHLORIDE 0.45% IV SCH (09:08)
[2017-09-25] MEDS: MAGNESIUM IV SCH (09:08)
[2017-09-25] MEDS: Protein Shake (high protein) 240ml (8oz) cup PO SCH ×2 (13:08→18:48)
[2017-09-25] MEDS: cephalexin 500mg capsule PO SCH ×2 (16:39→23:46)
[2017-09-25] MEDS: HYDROmorphone 2mg tablet PO PRN ×2 (16:40→20:26)
[2017-09-25] MEDS ORDERED: diphenhydrAMINE 25mg capsule PO ONE (20:00)
[2017-09-26] VITALS (17 sets, daily range): BP systolic 128–179; BP diastolic 49–98
[2017-09-26] MEDS: ipratropium/albuterol 3ml nebule NEB SCH ×4 (02:36→21:21)
[2017-09-26] MEDS: HYDROmorphone 2mg tablet PO PRN ×6 (04:25→23:08)
[2017-09-26 05:31] LABS: BASOPHILS % (AUTO) 0.5 % (0-1); EOSINOPHILS # (AUTO) 0.6 X10'3 (0-0.9); EOSINOPHILS % (AUTO) 10.6 % (0-6); HEMATOCRIT 29.6 % (35.0-45.0); LYMPHOCYTES # (AUTO) 0.9 X10'3 (1.1-4.8); LYMPHOCYTES % (AUTO) 14.5 % (21-51); MEAN CORPUSCULAR HEMOGLOBIN 29.6 PG (27.0-31.0); MEAN CORPUSCULAR HGB CONC 33.6 % (33.0-36.5); MEAN CORPUSCULAR VOLUME 88.3 FL (78-98); MEAN PLATELET VOLUME 6.8 FL (7.4-10.4); MONOCYTES # (AUTO) 0.5 X10'3 (0-0.9); MONOCYTES % (AUTO) 7.9 % (2-12); NEUTROPHILS % (AUTO) 66.5 % (42-75); PLATELET COUNT 481 X10'3 (140-440); RED BLOOD COUNT 3.36 X10'6 (4.20-5.60); RED CELL DISTRIBUTION WIDTH 15.4 % (11.5-14.5); WHITE BLOOD COUNT 6.1 X10'3 (4.5-11.0)
[2017-09-26 05:50] LABS: ALANINE AMINOTRANSFERASE 22 U/L (12-78); ALBUMIN 1.8 G/DL (3.4-5.0); ALBUMIN/GLOBULIN RATIO 0.5 (1.1-1.5); ALKALINE PHOSPHATASE 133 IU/L (46-116); ANION GAP 10 (8-16); ASPARTATE AMINO TRANSFERASE 23 U/L (10-37); BILIRUBIN,TOTAL 0.4 MG/DL (0.1-1.0); BLOOD UREA NITROGEN 8 MG/DL (7-18); CALCIUM 8.4 MG/DL (8.5-10.1); CHLORIDE 110 MMOL/L (99-107); GLUCOSE 108 MG/DL (70-104); MAGNESIUM 1.7 MG/DL (1.5-2.4); PREALBUMIN 13.2 MG/DL (19-36); SODIUM 144 MMOL/L (135-145); TOTAL CARBON DIOXIDE 24.3 MMOL/L (24-32); TOTAL PROTEIN 5.3 G/DL (6.4-8.2); TRIGLYCERIDES 153 MG/DL (20-135); eGFR 73 ML/MIN
[2017-09-26] MEDS: potassium Cl oral solution 20 MEQ/15 ML PO PRN ×3 (06:20→16:56)
[2017-09-26] MEDS: Protein Shake (high protein) 240ml (8oz) cup PO SCH ×3 (08:00→17:14)
[2017-09-26] MEDS: K and/or MAG REPLACEMENT MC SCH (08:00)
[2017-09-26] MEDS: aripiprazole 5mg tablet PO SCH (08:47)
[2017-09-26] MEDS: cephalexin 500mg capsule PO SCH ×3 (08:48→23:08)
[2017-09-26] MEDS: guaiFENesin/DM oral syrup 5 ML CUP PO PRN (14:05)
[2017-09-26] MEDS: lactobacillus rhamnosus 10,000 MMU CELLS/CAPSULE PO SCH (16:55)
[2017-09-26] MEDS ORDERED: temazepam 15mg capsule PO ONE (20:05)
[2017-09-26] MEDS: montelukast 10mg tablet PO SCH (20:25)
[2017-09-26] MEDS: lamoTRIgine 100mg tablet PO SCH (20:25)
[2017-09-26] MEDS: carVEDilol 3.125mg tablet PO SCH (20:25)
[2017-09-27] MEDS: guaiFENesin/DM oral syrup 5 ML CUP PO PRN ×2 (02:12→19:26)
[2017-09-27] MEDS: HYDROmorphone 2mg tablet PO PRN ×3 (02:12→19:26)
[2017-09-27 03:00] VITALS: BP 148/78
[2017-09-27] MEDS: ipratropium/albuterol 3ml nebule NEB SCH ×4 (03:00→20:22)
[2017-09-27 05:57] LABS: ALANINE AMINOTRANSFERASE 24 U/L (12-78); ALBUMIN 1.8 G/DL (3.4-5.0); ALBUMIN/GLOBULIN RATIO 0.5 (1.1-1.5); ALKALINE PHOSPHATASE 120 IU/L (46-116); ANION GAP 10 (8-16); ASPARTATE AMINO TRANSFERASE 25 U/L (10-37); BILIRUBIN,TOTAL 0.3 MG/DL (0.1-1.0); BLOOD UREA NITROGEN 7 MG/DL (7-18); BUN/CREATININE RATIO 8.8 (6.6-38.0); CALCIUM 8.4 MG/DL (8.5-10.1); CHLORIDE 112 MMOL/L (99-107); GLUCOSE 108 MG/DL (70-104); PHOSPHORUS 3.4 MG/DL (2.3-4.5); POTASSIUM 3.4 MMOL/L (3.5-5.1); SODIUM 145 MMOL/L (135-145); TOTAL CARBON DIOXIDE 23.1 MMOL/L (24-32); TOTAL PROTEIN 5.2 G/DL (6.4-8.2); eGFR 73 ML/MIN
[2017-09-27 06:00] VITALS: BP 128/74
[2017-09-27] MEDS: cephalexin 500mg capsule PO SCH ×2 (08:00→16:32)
[2017-09-27] MEDS: lactobacillus rhamnosus 10,000 MMU CELLS/CAPSULE PO SCH ×2 (08:00→16:32)
[2017-09-27] MEDS: K and/or MAG REPLACEMENT MC SCH (08:00)
[2017-09-27] MEDS: Protein Shake (high protein) 240ml (8oz) cup PO SCH ×3 (08:00→18:00)
[2017-09-27] MEDS: aripiprazole 5mg tablet PO SCH (08:01)
[2017-09-27] MEDS: losartan 50mg tablet PO SCH (08:01)
[2017-09-27] MEDS: carVEDilol 3.125mg tablet PO SCH ×2 (08:02→19:26)
[2017-09-27] MEDS: vitamin D (cholecalciferol) 1,000 unit tablet PO SCH (08:02)
[2017-09-27] MEDS: chlorthalidone 25mg tablet PO SCH (08:02)
[2017-09-27] MEDS: pantoprazole 40mg Tablet.DR PO SCH ×2 (08:02→19:27)
[2017-09-27] MEDS: lamoTRIgine 100mg tablet PO SCH ×2 (08:02→19:27)
[2017-09-27 10:55] LABS: ALANINE AMINOTRANSFERASE 27 U/L (12-78); ALBUMIN 2.1 G/DL (3.4-5.0); ALBUMIN/GLOBULIN RATIO 0.6 (1.1-1.5); ALKALINE PHOSPHATASE 133 IU/L (46-116); ANION GAP 9 (8-16); ASPARTATE AMINO TRANSFERASE 28 U/L (10-37); BILIRUBIN,TOTAL 0.3 MG/DL (0.1-1.0); BLOOD UREA NITROGEN 7 MG/DL (7-18); BUN/CREATININE RATIO 7.8 (6.6-38.0); CALCIUM 8.8 MG/DL (8.5-10.1); CHLORIDE 111 MMOL/L (99-107); GLUCOSE 102 MG/DL (70-104); POTASSIUM 3.8 MMOL/L (3.5-5.1); SODIUM 144 MMOL/L (135-145); TOTAL CARBON DIOXIDE 24.5 MMOL/L (24-32); TOTAL PROTEIN 5.8 G/DL (6.4-8.2); eGFR 64 ML/MIN
[2017-09-27 11:00] VITALS: BP 140/74
[2017-09-27 15:00] VITALS: BP 153/94
[2017-09-27 19:00] VITALS: BP 136/73
[2017-09-27] MEDS: montelukast 10mg tablet PO SCH (21:28)
[2017-09-27 23:00] VITALS: BP 157/74
[2017-09-27] MEDS ORDERED: temazepam 15mg capsule PO PRN (23:55)
[2017-09-28] MEDS: cephalexin 500mg capsule PO SCH ×3 (00:10→15:48)
[2017-09-28] MEDS: ipratropium/albuterol 3ml nebule NEB SCH ×3 (02:23→15:00)
[2017-09-28 03:00] VITALS: BP 145/77
[2017-09-28 05:42] LABS: ALANINE AMINOTRANSFERASE 32 U/L (12-78); ALBUMIN/GLOBULIN RATIO 0.6 (1.1-1.5); ALKALINE PHOSPHATASE 122 IU/L (46-116); ANION GAP 10 (8-16); ASPARTATE AMINO TRANSFERASE 22 U/L (10-37); BILIRUBIN,TOTAL 0.2 MG/DL (0.1-1.0); BLOOD UREA NITROGEN 8 MG/DL (7-18); CALCIUM 8.6 MG/DL (8.5-10.1); CHLORIDE 111 MMOL/L (99-107); GLUCOSE 104 MG/DL (70-104); PHOSPHORUS 4.9 MG/DL (2.3-4.5); POTASSIUM 3.3 MMOL/L (3.5-5.1); SODIUM 145 MMOL/L (135-145); TOTAL CARBON DIOXIDE 24.4 MMOL/L (24-32); TOTAL PROTEIN 5.3 G/DL (6.4-8.2); eGFR 56 ML/MIN
[2017-09-28 07:00] VITALS: BP 144/80
[2017-09-28] MEDS: Protein Shake (high protein) 240ml (8oz) cup PO SCH ×2 (08:00→13:00)
[2017-09-28] MEDS: K and/or MAG REPLACEMENT MC SCH (08:00)
[2017-09-28] MEDS ORDERED: potassium Cl 20 mEq SR tablet PO PRN ×2 (08:43)
[2017-09-28] MEDS: carVEDilol 3.125mg tablet PO SCH (08:56)
[2017-09-28] MEDS: lamoTRIgine 100mg tablet PO SCH (08:57)
[2017-09-28] MEDS: pantoprazole 40mg Tablet.DR PO SCH (08:57)
[2017-09-28] MEDS: losartan 50mg tablet PO SCH (08:57)
[2017-09-28] MEDS: chlorthalidone 25mg tablet PO SCH (08:57)
[2017-09-28] MEDS: vitamin D (cholecalciferol) 1,000 unit tablet PO SCH (08:58)
[2017-09-28] MEDS: aripiprazole 5mg tablet PO SCH (08:58)
[2017-09-28] MEDS: lactobacillus rhamnosus 10,000 MMU CELLS/CAPSULE PO SCH (09:04)
[2017-09-28 10:58] LABS: ALANINE AMINOTRANSFERASE 29 U/L (12-78); ALBUMIN 2.4 G/DL (3.4-5.0); ALBUMIN/GLOBULIN RATIO 0.6 (1.1-1.5); ALKALINE PHOSPHATASE 137 IU/L (46-116); ANION GAP 12 (8-16); ASPARTATE AMINO TRANSFERASE 28 U/L (10-37); BILIRUBIN,TOTAL 0.2 MG/DL (0.1-1.0); BLOOD UREA NITROGEN 8 MG/DL (7-18); BUN/CREATININE RATIO 7.7 (6.6-38.0); CALCIUM 9.1 MG/DL (8.5-10.1); CHLORIDE 109 MMOL/L (99-107); CREATININE 1.04 MG/DL (0.40-0.90); GLUCOSE 124 MG/DL (70-104); SODIUM 145 MMOL/L (135-145); TOTAL CARBON DIOXIDE 24.1 MMOL/L (24-32); TOTAL PROTEIN 6.2 G/DL (6.4-8.2); eGFR 54 ML/MIN
[2017-09-28 11:00] VITALS: BP 157/78
[2017-09-28 14:08] LABS: HEMATOCRIT 31.9 % (35.0-45.0); HEMOGLOBIN 10.7 g/dl (12.0-16.0); MEAN CORPUSCULAR HEMOGLOBIN 29.4 PG (27.0-31.0); MEAN CORPUSCULAR HGB CONC 33.4 % (33.0-36.5); MEAN PLATELET VOLUME 7.3 FL (7.4-10.4); PLATELET COUNT 687 X10'3 (140-440); RED BLOOD COUNT 3.63 X10'6 (4.20-5.60); RED CELL DISTRIBUTION WIDTH 15.5 % (11.5-14.5); WHITE BLOOD COUNT 6.6 X10'3 (4.5-11.0)
[2017-09-28] MEDS: HYDROmorphone 2mg tablet PO PRN (14:38)
== END 2017-09-28 16:30 | disposition home or self-care (01) | DRG 220 ==
LOC: ER 12:45 → ED HOLD 15:59 → SUR 3N 19:50 → ICU 2S 09-19 21:17 → PCU 3S 09-26 12:50
PROVIDERS: ADMIT Family Medicine; ATTEND Internal Medicine Critical Care Medicine
PROC: 30233N1 Transfusion of Nonautologous Red Blood Cells into Peripheral Vein, Percutaneous Approach (ICD-10-PCS; 2017-09-15)
PROC: 0DB68ZX Excision of Stomach, Via Natural or Artificial Opening Endoscopic, Diagnostic (ICD-10-PCS; 2017-09-16)
PROC: 0DJ08ZZ Inspection of Upper Intestinal Tract, Via Natural or Artificial Opening Endoscopic (ICD-10-PCS; 2017-09-18)
PROC: 04L33DZ Occlusion of Hepatic Artery with Intraluminal Device, Percutaneous Approach (ICD-10-PCS; 2017-09-19)
PROC: 0DJ08ZZ Inspection of Upper Intestinal Tract, Via Natural or Artificial Opening Endoscopic (ICD-10-PCS; 2017-09-19)
PROC: 0DQ90ZZ Repair Duodenum, Open Approach (ICD-10-PCS; 2017-09-20)
PROC: 02HV33Z Insertion of Infusion Device into Superior Vena Cava, Percutaneous Approach (ICD-10-PCS; 2017-09-20)
PROC: 5A1945Z Respiratory Ventilation, 24-96 Consecutive Hours (ICD-10-PCS; principal; 2017-09-20 12:00)
DX: K26.4 Chronic or unspecified duodenal ulcer with hemorrhage (principal); N17.0 Acute kidney failure with tubular necrosis; J96.00 Acute respiratory failure, unspecified whether with hypoxia or hypercapnia; J90 Pleural effusion, not elsewhere classified; E11.9 Type 2 diabetes mellitus without complications; I80.8 Phlebitis and thrombophlebitis of other sites; I10 Essential (primary) hypertension; F31.9 Bipolar disorder, unspecified; E66.9 Obesity, unspecified; K21.9 Gastro-esophageal reflux disease without esophagitis; Z68.41 Body mass index [BMI] 40.0-44.9, adult; E28.2 Polycystic ovarian syndrome; E87.6 Hypokalemia; D62 Acute posthemorrhagic anemia; T39.395A Adverse effect of other nonsteroidal anti-inflammatory drugs [NSAID], initial encounter; Z90.710 Acquired absence of both cervix and uterus; Z88.2 Allergy status to sulfonamides; Z88.1 Allergy status to other antibiotic agents; Z88.8 Allergy status to other drugs, medicaments and biological substances; Z79.899 Other long term (current) drug therapy; Y92.89 Other specified places as the place of occurrence of the external cause
CPT/HCPCS: 36218; 36245; 36415; 36600; 43239; 71045; 71046; 74018; 75726; 76700; 76937; 80047; 80048; 80053; 80074; 80202; 81003; 82103; 82140; 82272; 82330; 82803; 82810; 82948; 83036; 83605; 83735; 83880; 84100; 84132; 84134; 84443; 84478; 85018; 85025; 85027; 85610; 85730; 86885; 86900; 86901; 86920; 87070; 92616; 93005; 93306; 93308; 94002; 94003; 94640; 94760; 96374; 96375; 97110; 97116; 97162; 97530; 99152; 99153; 99291; A4620; A6213; A6219; A6257; A6258; A6449; A7000; C1758; C1760; C1769; C1894; C9113; G0269; G0500; J0692; J1170; J1250; J1940; J2250; J2270; J3010; J3370; J3475; J3480; J3490; J7030; J7070; J7120; P9016; Q0163; Q9967

== ENCOUNTER 2022-02-18 11:48 | Day surgery (SDC) | payer MEDICARE, MEDICAID ==
[2022-02-12 10:03] LABS: BASOPHILS % (AUTO) 0.4 % (0-1); EOSINOPHILS # (AUTO) 0.3 X10'3 (0-0.9); EOSINOPHILS % (AUTO) 3.2 % (0-6); LYMPHOCYTES # (AUTO) 1.9 X10'3 (1.1-4.8); LYMPHOCYTES % (AUTO) 24.6 % (21-51); MEAN CORPUSCULAR HGB CONC 33.3 g/dL (33.0-36.5); MEAN CORPUSCULAR VOLUME 90.1 FL (78-98); MEAN PLATELET VOLUME 7.2 FL (7.4-10.4); MONOCYTES # (AUTO) 0.4 X10'3 (0-0.9); MONOCYTES % (AUTO) 4.5 % (2-12); NEUTROPHILS # (AUTO) 5.3 X10'3 (1.8-7.7); NEUTROPHILS % (AUTO) 67.3 % (42-75); PRE OP HEMOGLOBIN 15.6 g/dL (12.0-16.0); PRE OP PLATELET COUNT 258 X10'3 (140-440); RED BLOOD COUNT 5.22 X10'6 (4.20-5.60); RED CELL DISTRIBUTION WIDTH 12.8 % (11.5-14.5)
[2022-02-12 10:27] LABS: ALBUMIN 3.5 G/DL (3.4-5.0); ALBUMIN/GLOBULIN RATIO 1.1 (1.1-1.5); ALKALINE PHOSPHATASE 85 IU/L (46-116); BLOOD UREA NITROGEN 16 MG/DL (7-18); BUN/CREATININE RATIO 19.3 (6.6-38.0); CHLORIDE 108 MMOL/L (99-107); CREATININE 0.83 MG/DL (0.40-0.90); PRE OP ALT 22 U/L (30-65); PRE OP ANION GAP 9 (8-16); PRE OP AST 17 U/L (10-37); PRE OP BILIRUB, TOTAL 0.4 MG/DL (0.0-1.0); PRE OP GLUCOSE 115 MG/DL (70-104); PRE OP POTASSIUM 4.4 MMOL/L (3.4-5.1); PRE OP SODIUM 143 MMOL/L (135-145); TOTAL CARBON DIOXIDE 25.9 MMOL/L (24-32); TOTAL PROTEIN 6.6 G/DL (6.4-8.2); eGFR 69 ML/MIN
[~2022-02-18] VITALS: Ht 165.1 cm; Wt 84.8 kg
[2022-02-18] VITALS (9 sets, daily range): BP systolic 134–166; BP diastolic 51–83
[~2022-02-18 11:48] MED LIST changes: +AMLO2.5T2 PO; +ATEN25TA PO; +BIOT1CAP3 PO; -BUPR-94 PO; +CHOL20004 PO; +DOCUMENT DATE & TIME OF BETA-BLOCKER PO ONE; +ESTR1TAB28 PO; -LOSA25TA96 PO; +LUTE1CAP5 PO; +METHYLFOLATE; +MULT-1085 PO; +PREVEGEN; +PROG200C11 PO; -TRAM1TAB36 PO; +ZIPR20CA12 PO; +[UNRECOGNIZED DRUG - CODE]; +[UNRECOGNIZED DRUG - OTHER]; +[UNRECOGNIZED DRUG - OTHER]; +albuterol 2.5 MG/3 ML nebule NEB ONE; +ceFAZolin inj. 2,000 MG in dextrose 5%-water 100 ML IV ONE; +famotidine 20mg tablet PO ONE; +ringers solution, lacted 1,000 ML IV SCH
--- NOTE | 2022-02-18 12:54 | NUR ---
RT AT BEDSIDE, PT IS GETTING A BREATHING TREATMENT. Addendum: 02/18/22 at 1255 by Lashonda Campo RN, RN Amended: Links added.
[2022-02-18] MEDS ORDERED: BUPIVACAINE liposomal/PF 13.3 MG/ML vial IM ONE (13:17)
[2022-02-18] MEDS ORDERED: LIDOcaine 1% 30ml preserv. free vial ONE (13:17)
[2022-02-18] MEDS ORDERED: BUPIVAcaine 0.5% inj/PF 60 ML ONE (13:17)
[2022-02-18] MEDS ORDERED: sevoflurane 250ml liquid IH ONE (13:22)
[2022-02-18] MEDS ORDERED: albuterol 60 PUFF/8GM Inhaler IH ONE (13:22)
[2022-02-18] MEDS ORDERED: proCHLORperazine 10 MG/2 ml inj IV PRN (13:25)
[2022-02-18] MEDS ORDERED: acetaminophen 1,000mg/100ml IV 100 ML IV PRN (13:25)
[2022-02-18] MEDS ORDERED: ringers solution, lacted 1,000 ML IV SCH (13:25)
[2022-02-18] MEDS ORDERED: morphine 4 MG/ML inj SYRINge IV PRN (13:25)
[2022-02-18] MEDS ORDERED: ondansetron/PF 4mg/2ml inj IV PRN (13:25)
[2022-02-18] MEDS ORDERED: morphine 2 MG/ML inj. syringe IV PRN (13:25)
[2022-02-18] MEDS ORDERED: meperidine/PF 25mg/ml syringe IV PRN ×3 (13:25)
[2022-02-18] MEDS ORDERED: labetalol 20mg/4ml (5mg/ml) syringe IV PRN (13:25)
[2022-02-18] MEDS ORDERED: hydrALAZINE 20mg/ml inj. IV PRN (13:25)
[2022-02-18] MEDS ORDERED: midazolam 1 mg/ML 2ml injection ONE (13:28)
[2022-02-18] MEDS ORDERED: fentaNYL /PF 50mcg/ml 5ml ampule ONE (13:29)
[2022-02-18] MEDS ORDERED: BUPIVAcaine 0.5% inj/PF 30 ml vial IJ ONE (13:47)
[2022-02-18] MEDS ORDERED: propofol inj 20 ML IV ONE (13:59)
[2022-02-18] MEDS ORDERED: rocuronium 10mg/ml inj IV ONE (13:59)
[2022-02-18] MEDS ORDERED: LIDOcaine 1%/PF 5ML 10 MG/ML VIAL ONE ×2 (13:59)
[2022-02-18] MEDS ORDERED: ondansetron/PF 4mg/2ml inj ONE (14:00)
[2022-02-18] MEDS ORDERED: dexamethasone sod phosphate 4mg/ml inj. ONE (14:00)
[2022-02-18] MEDS ORDERED: ePHEDrine 50MG/ML INJ. ONE (15:13)
[2022-02-18] MEDS ORDERED: 0.9 % SODIUM CHLORIDE 10 ML VIAL ONE (15:13)
[2022-02-18] MEDS ORDERED: neostigmine methylsulfate 1 MG/ML 10ml vial ONE (15:13)
[2022-02-18] MEDS ORDERED: glycopyrrolate 0.2mg/ml inj ONE (15:14)
[2022-02-18] MEDS ORDERED: sugammadex 200mg/2ml injection IV ONE (15:20)
--- NOTE | 2022-02-18 15:26 | NUR ---
Received from OR via [facility], accompanied by Anesthesiologist DR. PÉREZ and report given by Anesthesiolgist. PATIENT HAS 20G PIV TO RIGHT HAND, HYPERTENSIVE WITH SYSTOLIC 166. VS STABLE, 10L MASK. STATED BY JELLY OR NURSE BANDAIDS WITH STERISTRIPS UNDER. ABDOMINAL BINDER IN PLACE CURRENTLY. WILL CONTINUE TO MONITOR.
[2022-02-18] MEDS ORDERED: oxyCODONE/APAP 5-325mg tablet PO PRN (15:30)
[2022-02-18] MEDS ORDERED: oxyCODONE/APAP 10/325mg tablet PO PRN (15:30)
--- NOTE | 2022-02-18 15:51 | NUR ---
REMINDED PATIENT SEVERAL TIMES TO NOT ATTEMPT TO TOUCH INCISION. SHE SAYS "I'M NOT TOUCHING THEM, I'M TOUCHING THE BINDER" AND THEN CONTINUES TO PULL AT BINDER. SHE IS REQUESTING ANTIBIOTICS. DR. FALK AT BEDSIDE TO REINFORCE INFORMATION AND INFORM HER THAT SHE WILL NOT BE NEEDING ANTIBIOTICS.
--- NOTE | 2022-02-18 17:26 | NUR ---
PATIENT MEETS DISCHARGE CRITERIA. VSS. STATES 4/10 PAIN HOWEVER "IT IS MUCH BETTER" AND DECLINES MEDICATION. ABDOMINAL BINDER ON CDI. ABLE TO AMBULATE, USE IS AND VOID. ALL BELONGINGS SENT WITH PATIENT. DAUGHTER, DAVIS PICKED PATIENT UP.
== END 2022-02-18 17:26 | disposition home or self-care (01) ==
LOC: PAS 11:48
PROVIDERS: ATTEND Surgery
DX: K43.0 Incisional hernia with obstruction, without gangrene (principal); F41.9 Anxiety disorder, unspecified; F31.9 Bipolar disorder, unspecified; M19.90 Unspecified osteoarthritis, unspecified site; I10 Essential (primary) hypertension; E66.9 Obesity, unspecified; Z68.31 Body mass index [BMI] 31.0-31.9, adult; Z79.899 Other long term (current) drug therapy; Z86.14 Personal history of Methicillin resistant Staphylococcus aureus infection; Z90.710 Acquired absence of both cervix and uterus; Z98.890 Other specified postprocedural states; Z88.1 Allergy status to other antibiotic agents; Z87.891 Personal history of nicotine dependence
CPT/HCPCS: 36415; 49655; 64488; 80053; 82948; 85025; 93005; 94640; 94760; C1781; C9290; J0690; J1100; J2175; J2250; J2270; J2405; J2704; J2710; J3010; J3490; J7030; J7060; J7120; S0020; Z7506; Z7508; Z7512; A4215; A4618